=== PATIENT | male | born 1970 | race Caucasian/White ===

== ENCOUNTER → 2021-07-05 | Day surgery (SDC) | payer OTHER ==
[2021-07-02 09:49] LABS: BASOPHILS # (AUTO) 0.1 (0.0-0.1); BASOPHILS % 0.5 % (0.0-1.0); EOSINOPHILS # (AUTO) 0.3 (0.0-0.4); EOSINOPHILS % 2.3 % (0.0-6.0); HEMATOCRIT 42.6 % (38.2-49.6); LYMPHOCYTES # (AUTO) 3.5 (1.0-3.2); LYMPHOCYTES % 26.7 % (18.0-39.1); MEAN CORPUSCULAR HEMOGLOBIN 29.9 pg (28-32); MEAN CORPUSCULAR HGB CONC 32.9 g/dL (31-35); MONOCYTES # (AUTO) 0.6 (0.2-0.8); MONOCYTES % 4.7 % (4.4-11.3); NEUTROPHILS # (AUTO) 8.4 (2.1-6.9); PLATELET COUNT 277 x10e3/uL (140-360); RED BLOOD COUNT 4.68 x10e6/uL (4.3-5.7); RED CELL DISTRIBUTION WIDTH 13.5 % (11.7-14.4)
[2021-07-02 10:05] LABS: CALCIUM 8.9 mg/dL (8.4-10.2); CREATININE, SERUM 0.83 mg/dL (0.72-1.25)
[~2021-07-05] MED LIST: ACETAMINOPHEN-1 EAC3 PO; ALLEGRA-D 24 H1 EACH PO; ATORVASTATIN CA20 MG PO; BUPIVACAINE HCL 0.5% 10ML MPF VIAL INJ ONE; CLEOCIN HCL300 MG PO; DEXAMETHASONE SOD PHOS INJ 4 MG/ML SDV ONE; FENTANYL CITRATE/PF 100MCG/2 ML INJ ONE; JANUVIA100 MG PO; KETOROLAC TROMETHAMINE 30 MG/ML VIAL ONE; LIDOCAINE HCL 2% LOCAL INJ 5 ML SDV VIAL INJ ONE; METFORMIN HCL500 MG PO; MIDAZOLAM HCL 2 MG/2 ML VIAL ONE; MUPIROCIN22 GM TOP; NEOMYCIN/POLYMYX/BACITR OINT 0.9 GM PKT ONE; NEURONTIN300 MG PO; NITROGLYCERIN0.4 MG TD; NITROGLYCERIN1 EAC2 TD; ONDANSETRON HCL INJ 2MG/ML 2ML 2 MG/ML VIAL ONE; PIOGLITAZONE HC45 MG PO; POVIDONE IODINE 0.05% 0.05 % ML PO ONE; PRILOSEC OTC20 MG PO; PROPOFOL IV EMULSION 10 MG/ML 20 ML VIAL ONE; SEVOFLURANE INHAL SOLN 250 ML PEN BTL ONE; SODIUM CHLORIDE 0.9% 250ML 250 ML ONE; Vancomycin IV 1 GM VIAL ONE
[2021-07-05 07:55] VITALS: BP 132/90
== END | disposition home or self-care (01) ==
LOC: OR 05:43
PROVIDERS: ATTEND Podiatrist Foot & Ankle Surgery
DX: E11.52 Type 2 diabetes mellitus with diabetic peripheral angiopathy with gangrene (principal); M48.00 Spinal stenosis, site unspecified; E78.5 Hyperlipidemia, unspecified; K28.9 Gastrojejunal ulcer, unspecified as acute or chronic, without hemorrhage or perforation; K21.9 Gastro-esophageal reflux disease without esophagitis; N20.0 Calculus of kidney; F17.210 Nicotine dependence, cigarettes, uncomplicated; Z01.810 Encounter for preprocedural cardiovascular examination; Z01.812 Encounter for preprocedural laboratory examination; Z01.818 Encounter for other preprocedural examination; Z20.822 Contact with and (suspected) exposure to COVID-19; Z79.84 Long term (current) use of oral hypoglycemic drugs; Z79.899 Other long term (current) drug therapy; Z86.718 Personal history of other venous thrombosis and embolism
CPT/HCPCS: 28820; 36415 ×2; 71046; 80048; 82948; 85025; 88304; 88311; 93005; C1713; J1100; J1885; J2001; J2405; J2704; J3370; J7050; U0002; J2250; J3010